=== PATIENT | male | born 1995 | race Caucasian/White ===

== ENCOUNTER 2016-05-18 18:44 | Emergency (ER) | payer OTHER ==
[~2016-05-18] VITALS: Ht 162.6 cm; Wt 59.9 kg
[2016-05-18 18:48] VITALS: TEMP 36.7; Ht 162.6 cm; Wt 59.9 kg
--- NOTE | 2016-05-18 19:21 | EMERGENCY ROOM VISIT NOTE ---
History Report prepared by Ashley: Jolene Sagastume Under the Supervision of: Dr. Pete Watts M.D. First contact with patient: 18:58 Chief Complaint: MENTAL HEALTH EVALUATION Stated Complaint: DEPRESSION History of Present Illness The patient is a 20 year old male who presents to the Emergency Room with complaints of increasing depression over the past month. 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 He states that over the past month he has been following with [facility], but denies being put on any medications for his depression. The patient denies any previous history of depression. He states that he feels his depression is worsened with being a student at [employer]. He states that the only thing keeping him at [employer] is [employer] [facility]. The patient states that he meets with [employer] [employer] every morning. He states that school is going okay, and denies any drug or alcohol use. The patient states that he has been sleeping well at night. The patient notes recent passive suicidal thoughts without a plan, but denies any homicidal ideation. The patient denies any nausea, vomiting, diarrhea, or fevers. Source of History: patient Onset: past month Position: other (global) Quality: other (depression) Timing: other (increasing) Associated Symptoms: No diarrhea, No fevers, No nausea, No vomiting Note: Associated Symptoms: suicidal thoughts without a plan Review of Systems See HPI for pertinent positives & negatives. A total of 10 systems reviewed and were otherwise negative. Past Medical & Surgical Medical Problems: (1) Depression Family History No pertinent family history stated. Social History Smoking Status: Never Smoker Alcohol Use: none Drug Use: none Marital Status: single Occupation Status: [employer] student Current/Historical Medications No Active Prescriptions or Reported Meds Allergies Coded Allergies: No Known Allergies (Unverified , 05/18/16) Physical Exam Vital Signs Date Time Temp Pulse Resp B/P Pulse Ox O2 Delivery O2 Flow Rate FiO2 05/18/16 20:55 70 20 116/78 100 05/18/16 20:45 70 20 116/78 100 Room Air 05/18/16 18:48 36.7 62 16 124/77 100 Room Air Physical Exam GENERAL: Patient is a healthy-appearing well-nourished HEAD: Normocephalic atraumatic EYES: Ocular movements intact pupils equal and react to light OROPHARYNX mucous membranes are moist no exudates present no erythema or edema present NECK: Supple no nuchal rigidity CHEST: Good equal expansion LUNGS: Clear and equal to auscultation CARDIAC: Normal S1 and S2 ABDOMEN: Soft nontender no guarding BACK: No CVA tenderness EXTREMITIES: No pain upon palpation normal muscle strength in all groups no clubbing cyanosis or edema NEURO: Patient is following commands is answering questions appropriately. Alert and oriented x3 Cranial Nerves 2-12 grossly intact Medical Decision & Procedures Laboratory Results 05/18/16 19:25 Red Blood Count 6.39, Mean Corpuscular Volume 61.5, Mean Corpuscular Hemoglobin 20.3, Mean Corpuscular Hemoglobin Concent 33.1, Mean Platelet Volume 9.8, Neutrophils (%) (Auto) 70.4, Lymphocytes (%) (Auto) 19.6, Monocytes (%) (Auto) 8.2, Eosinophils (%) (Auto) 1.4, Basophils (%) (Auto) 0.3, Neutrophils # (Auto) 6.85, Lymphocytes # (Auto) 1.91, Monocytes # (Auto) 0.80, Eosinophils # (Auto) 0.14, Basophils # (Auto) 0.03 05/18/16 19:25 Test 05/18/16 19:14 05/18/16 19:25 05/18/16 19:32 Urine Color YELLOW Urine Appearance CLEAR (CLEAR) Urine pH 6.5 (4.5-7.5) Urine Specific Christopher 1.005 (1.000-1.030) Urine Protein NEG (NEG) Urine Glucose (UA) NEG (NEG) Urine Ketones NEG (NEG) Urine Occult Blood NEG (NEG) Urine Nitrite NEG (NEG) Urine Bilirubin NEG (NEG) Urine Urobilinogen NEG (NEG) Urine Leukocyte Esterase NEG (NEG) Urine Opiates Screen NEG (NEG) Urine Methadone, Qualitative NEG (NEG) Urine Barbiturates NEG (NEG) Urine Phencyclidine (PCP) Level NEG (NEG) Ur Amphetamine/Methamphetamine NEG (NEG) MDMA (Ecstasy) Screen NEG (NEG) Urine Benzodiazepines Screen NEG (NEG) Urine Cocaine Metabolite NEG (NEG) Urine Marijuana (THC) NEG (NEG) White Blood Count 9.74 K/uL (4.8-10.8) Red Blood Count 6.39 M/uL (4.7-6.1) Hemoglobin 13.0 g/dL (14.0-18.0) Hematocrit 39.3 % (42-52) Mean Corpuscular Volume 61.5 fL (80-100) Mean Corpuscular Hemoglobin 20.3 pg (25-34) Mean Corpuscular Hemoglobin Concent 33.1 g/dl (32-36) Platelet Count 305 K/uL (130-400) Mean Platelet Volume 9.8 fL (7.4-10.4) Neutrophils (%) (Auto) 70.4 % Lymphocytes (%) (Auto) 19.6 % Monocytes (%) (Auto) 8.2 % Eosinophils (%) (Auto) 1.4 % Basophils (%) (Auto) 0.3 % Neutrophils # (Auto) 6.85 K/uL (1.4-6.5) Lymphocytes # (Auto) 1.91 K/uL (1.2-3.4) Monocytes # (Auto) 0.80 K/uL (0.11-0.59) Eosinophils # (Auto) 0.14 K/uL (0-0.5) Basophils # (Auto) 0.03 K/uL (0-0.2) RDW Standard Deviation 35.2 fL (36.4-46.3) RDW Coefficient of Variation 15.9 % (11.5-14.5) Immature Granulocyte % (Auto) 0.1 % Immature Granulocyte # (Auto) 0.01 K/uL (0.00-0.02) Ovalocytes 1+ Anion Gap 6.0 mmol/L (3-11) Est Creatinine Clear Calc Drug Dose 128.2 ml/min Estimated GFR () > 150.0 Estimated GFR (Non- 130.6 BUN/Creatinine Ratio 17.7 (10-20) Calcium Level 9.0 mg/dl (8.5-10.1) Total Bilirubin 0.5 mg/dl (0.2-1) Direct Bilirubin 0.1 mg/dl (0-0.2) Aspartate Amino Transf (AST/SGOT) 12 U/L (15-37) Alanine Aminotransferase (ALT/SGPT) 25 U/L (12-78) Alkaline Phosphatase 110 U/L (45-117) Total Protein 7.5 gm/dl (6.4-8.2) Albumin 4.5 gm/dl (3.4-5.0) Thyroid Stimulating Hormone (TSH) 1.380 uIu/ml (0.300-4.500) Ethyl Alcohol mg/dL < 3.0 mg/dl (0-3) Bedside Glucose 83 mg/dl (70-99) Labs reviewed by ED physician. ED Course 1907: Past medical records reviewed. The patient was evaluated in room A7. A complete history and physical examination was performed. 1925: Per case management, the patient is leaving for [facility] on Monday. 2005: The patient is medically clear for further psych evaluation. 2044: I reevaluated the patient and he is doing well. I discussed the exam findings with him and I discussed the treatment plan. He verbalized complete understanding and agreement. He is ready to go home. Medical Decision Differential diagnosis: Etiologies such as mood disorder, infection, hypoglycemia, electrolyte abnormalities, cardiac sources, intracerebral event, toxicologic, neurologic, as well as others were entertained. This is a 20-year-old male who presents emergency department complaining of depression. The patient denies having a suicidal plan and is not homicidal. He is planning to go home to [facility] this weekend with his father. I do believe that he is medically clear based on his laboratory work and his complaints. He was evaluated by case management felt he was safe enough to go home to follow-up with [facility]. Patient and father were in agreement with the treatment plan. Impression Primary Impression: Mood disorder Scribe Attestation The scribe's documentation has been prepared under my direction and personally reviewed by me in its entirety. I confirm that the note above accurately reflects all work, treatment, procedures, and medical decision making performed by me. Departure Information Dispostion Home / Self-Care Prescriptions No Active Prescriptions or Reported Meds Forms HOME CARE DOCUMENTATION FORM, IMPORTANT VISIT INFORMATION, School Instructions, Work Instructions Patient Instructions [facility] Additional Instructions You have been examined and treated today on an emergency basis only. This is not a substitute for, or an effort to provide, complete comprehensive medical care. It is impossible to recognize and treat all injuries or illnesses in a single emergency department visit. It is therefore important that you follow up closely with [facility]. Call as soon as possible for an appointment. Thank you for your time and consideration. I look forward to speaking with you again soon. Please don't hesitate to call us if you have any questions.
[2016-05-18 19:42] LABS: URINE APPEARANCE CLEAR (CLEAR); URINE BILIRUBIN NEG (NEG); URINE COLOR YELLOW; URINE NITRITE NEG (NEG); URINE PH 6.5 (4.5-7.5); URINE SPECIFIC GRAVITY 1.005 (1.000-1.030); UROBILINOGEN NEG (NEG)
[2016-05-18 19:45] LABS: BASO % 0.3 %; BASO ABS # 0.03 K/uL (0-0.2); EOS % 1.4 %; HEMATOCRIT 39.3 % (42-52); IG% 0.1 %; LYMPH % 19.6 %; LYMPH ABS # 1.91 K/uL (1.2-3.4); MEAN CELL VOLUME 61.5 fL (80-100); MEAN CORPUSCULAR HEMOGLOBIN 20.3 pg (25-34); MEAN CORPUSCULAR HGB CONC 33.1 g/dl (32-36); MEAN PLATELET VOLUME 9.8 fL (7.4-10.4); MONO % 8.2 %; NEUT % 70.4 %; PLATELET COUNT 305 K/uL (130-400); RED BLOOD COUNT 6.39 M/uL (4.7-6.1); WHITE BLOOD COUNT 9.74 K/uL (4.8-10.8)
[2016-05-18 19:47] LABS: MANUAL MICROSCOPIC REQUIRED? NO; REVIEW REQ? NO
[2016-05-18 20:04] LABS: ALT/SGPT 25 U/L (12-78); AST/SGOT 12 U/L (15-37); BLOOD UREA NITROGEN 14 mg/dl (7-18); BUN/CREATININE RATIO 17.7 (10-20); CARBON DIOXIDE 30 mmol/L (21-32); CHLORIDE 105 mmol/L (98-107); CREATININE 0.77 mg/dl (0.60-1.40); GLUCOSE 91 mg/dl (70-99); POTASSIUM 3.5 mmol/L (3.5-5.1); SODIUM 141 mmol/L (136-145)
[2016-05-18 20:11] LABS: BENZODIAZEPINE, URINE NEG (NEG); COCAINE,URINE NEG (NEG); PHENCYCLIDINE, URINE NEG (NEG)
[2016-05-18 20:15] LABS: ALKALINE PHOSPHATASE 110 U/L (45-117)
[2016-05-18 20:36] LABS: COMPLETE YES; OVALOCYTES 1+
[2016-05-18 20:55] VITALS: BP 116/78; PULSE 70; O2SAT 100
== END 2016-05-18 20:57 | disposition home or self-care (01) ==
LOC: C.EDB 18:47 → C.EDA 20:57
DX: F39 Unspecified mood [affective] disorder (principal)